=== PATIENT | male | born 1935 | race American Indian/Alaskan Native ===

== ENCOUNTER 2021-03-31 08:50 | Outpatient (CLI) | payer MEDICARE, BC ==
--- NOTE | 2021-03-31 10:36 | Cat Scan Report ---
CT ABDOMEN AND PELVIS WITHOUT CONTRAST INDICATION / CLINICAL INFORMATION: ELEVATED PSA. TECHNIQUE: Axial CT images were obtained through the abdomen and pelvis without IV contrast. All CT scans at [facility] location are performed using CT dose reduction for ALARA by means of automated exposure control. COMPARISON: None available. FINDINGS: LOWER CHEST: No significant abnormality. LIVER: There are multiple subcentimeter hepatic cysts without other significant abnormalities. GALLBLADDER: Cholelithiasis/sludge is noted without evidence of acute cholecystitis. BILE DUCTS: No significant abnormality. PANCREAS: No significant abnormality. SPLEEN: No significant abnormality. ADRENALS: No significant abnormality. RIGHT KIDNEY / URETER: No significant abnormality. LEFT KIDNEY / URETER: No significant abnormality. STOMACH / SMALL BOWEL: No significant abnormality. COLON: A large amount of stool is seen throughout the colon without other significant abnormalities. APPENDIX: No significant abnormality. PERITONEUM: No free fluid. No free air. No fluid collection. LYMPH NODES: No significant adenopathy. AORTA / ARTERIES: The aorta is normal in caliber with mild bilateral iliac atherosclerosis. IVC / VEINS: No significant abnormality. URINARY BLADDER: Nonspecific generalized mild bladder wall thickening is noted without other signific ant abnormalities. REPRODUCTIVE ORGANS: The prostate gland is mildly enlarged and measures 5.2 x 4.8 x 4.4 cm without ot her significant abnormalities. ADDITIONAL FINDINGS: There is an indeterminate peripherally calcified rounded structure of soft tissu e density located just inferior to the right adrenal gland measuring 3.8 x 3.1 cm on image 22 of seri es 4. SKELETAL SYSTEM: No acute abnormality. The bones are demineralized with mild degenerative changes see n throughout the spine and pelvis. IMPRESSION: 1. Indeterminate calcified structure in the right upper quadrant as above. A CT abdomen with contrast would be helpful for further evaluation. 2. Mildly enlarged prostate gland without evidence of metastatic disease. 3. Additional findings as above. Signer Name: Gianfranco Zapata MD Signed: 03/31/2021 10:31 AM Workstation Name: [id number]
--- NOTE | 2021-03-31 14:49 | Nuclear Medicine Report ---
Whole body bone scan INDICATION: Prostate cancer TECHNIQUE: A total of 24.1 millicuries of technetium 99 MDP was injected IV per protocol. Whole-body images were obtained. COMPARISON: CT abdomen pelvis performed 03/31/2021 FINDINGS: Diffuse radiotracer uptake identified throughout the axial and appendicular skeleton with r enal excretion. There is mildly suspicious uptake identified within the right iliac wing near the rig ht SI joint which corresponds to several small sclerotic lesions on the CT performed earlier today. T here is some faint increased uptake involving the anterior ribs at the level of the lower sternum, no nspecific IMPRESSION: Increased uptake identified within the right iliac crest immediately adjacent to the righ t SI joint corresponding to a sclerotic lesion on the CT from 03/31/2021. Recommend correlation with C T chest to evaluate rib uptake. Signer Name: Adarsh Babb MD Signed: 03/31/2021 2:44 PM Workstation Name: [id number]
== END 2021-03-31 08:51 | disposition home or self-care (01) ==
LOC: NM 08:50
PROVIDERS: ATTEND Urology
DX: N40.0 Benign prostatic hyperplasia without lower urinary tract symptoms (principal); K76.89 Other specified diseases of liver; K80.20 Calculus of gallbladder without cholecystitis without obstruction; I70.0 Atherosclerosis of aorta; R97.20 Elevated prostate specific antigen [PSA]
CPT/HCPCS: 74176; 78306; A9503